=== PATIENT | male | born 1995 | race Two or more races ===

== ENCOUNTER 2024-10-02 11:33 | Emergency (ER) | payer MEDICAID, OTHER, SELFPAY ==
--- NOTE | ~2024-10-02 | CT_ITS ---
CLINICAL HISTORY: abdominal pain, RLQ CT abdomen and pelvis with contrast Comparison: None provided Findings: There is ill-defined somewhat linear pleural-based density within the left lower lobe on axial 4. The liver, gallbladder, spleen, adrenal glands and pancreas are unremarkable. Kidneys, ureters and bladder demonstrate no acute process. Normal appendix. No bowel obstruction, free air, free fluid, abscess or adenopathy. There is gas and fluid throughout nondistended small and large bowel. No acute osseous finding Impression: Normal appendix. Possible mild enteritis. This document has been electronically signed by: Bulmaro Siu MD on 10/02/2024 16:53:46
[2024-10-02 11:40] VITALS: BP 140/77; PULSE 75; RESP 18; TEMP 36.6; O2SAT 99; BMI 22.1
[2024-10-02 12:40] LABS: MANUAL DIFF FLAG NO
[2024-10-02 12:50] LABS: Hematocrit 41.6 % (42.0-52.0); Hemoglobin 14.7 g/dl (14.0-18.0); Imm Gran Abs Auto 0.04 X10*3/uL (0.00-0.03); Imm Gran Pct Auto 0.3 % (0.0-0.4); Lymphocytes Absolute Auto 1.5 X10*3/uL (1.2-4.9); Mean Corpuscular HGB Conc 35.3 g/dl (31.0-36.0); Mean Corpuscular Hemoglobin 29.8 pg (27.0-33.0); Mean Corpuscular Volume 84.2 fL (80.0-98.0); NRBC Abs Auto 0.000 X10*3/uL (0.0-0.012); NRBC Pct Auto 0.0 /100WBC (0.0-0.2); Platelet Count 214 X10*3/uL (160-400); Red Blood Count 4.94 X10*6/uL (4.60-5.80); White Blood Count 14.2 X10*3/uL (4.8-10.8)
[2024-10-02 12:51] LABS: IDNOW Serial# 58CA691E; Strep A Nucleic Acid Negative (Negative)
[2024-10-02 13:07] LABS: Alanine Aminotransferase 25 U/L (0-40); Albumin Level 5.0 g/dL (3.5-5.0); Alkaline Phosphatase 83 U/L (39-117); Anion Gap 13 (12-20); Aspartate Amino Transferase 25 U/L (5-37); Blood Urea Nitrogen 10 mg/dL (9-16); Calcium 9.4 mg/dL (8.4-10.2); Carbon Dioxide 26 mmol/L (22-29); Chloride 106 mmol/L (96-108); Creatinine Clr Calc Pharmacy 122.4; Estimated Glomerular Filt Rate > 60; Lipase 8 U/L (8-78); Potassium 3.9 mmol/L (3.3-5.1); Sodium 141 mmol/L (135-145); Total Protein 7.7 g/dL (6.5-8.0)
[2024-10-02 13:51] LABS: Resp Syncy Virus RNA Qual PCR NEGATIVE (Negative); SARS COV2 PCR INHOUSE NEGATIVE (Negative)
[2024-10-02 15:16] VITALS: BP 155/75; PULSE 70; RESP 18; TEMP 37.7; O2SAT 98
--- NOTE | 2024-10-02 15:16 | ED_ITS ---
HPI - General Adult General Chief complaint: General Medical Stated complaint: trouble breathing Time Seen by Provider: 10/02/24 15:16 Source: patient and inventory manager Mode of arrival: ambulatory Limitations: no limitations and language barrier History of Present Illness ED Provider: HPI narrative: 29-year-old male presenting with abdominal pain in the suprapubic area and right lower quadrant, unrelated of the he was also complaining of sore throat and pinching in his throat and concerned that his right side of the face and neck is swollen but that does not appear to be the case and mostly what he is here with his abdominal pain and he states that he did have some not show was yesterday he was fishing with friends drank a red bull, denies alcohol use, has had no hematuria or dysuria. Related Data Previous Rx's ?Medication ?Instructions ?Recorded dicyclomine 20 mg tablet 20 mg PO TID 3 days #9 tabs 10/02/24 ondansetron 4 mg disintegrating 4 mg PO Q8H PRN nausea and 10/02/24 tablet vomiting #4 tabs Allergies Allergy/AdvReac Type Severity Reaction Status Date / Time No Known Allergies Allergy Verified 10/02/24 11:47 Review of Systems 2 Constitutional: Constitutional: Reports as per [facility] Social History Social History Smoked in Last 30 Days: No Use of substances other than those prescribed or required for medical reasons: No Do you have a plan to hurt others: No Plan Physical Exam ED Vital Signs: Vital Signs - 24 hr 10/02/24 11:40 10/02/24 15:16 10/02/24 15:55 Temperature 97.9 F 100 F Pulse Rate 75 70 Respiratory Rate 18 18 15 Blood Pressure 140/77 H 155/75 H Pulse Oximetry 99 98 Oxygen Delivery Method Room Air Room Air 10/02/24 16:22 Temperature 99.3 F Pulse Rate 65 Respiratory Rate 18 Blood Pressure 114/56 L Pulse Oximetry 98 Oxygen Delivery Method Room Air BMI result Body Mass Index 22.1 Const Other: * Gen: ?Overall well-appearing patient * HEENT: PERRLA, EOMI, MMM, there is no facial swelling, good dentition * Neck: Supple, no LAD * CV: RRR, no obvious murmurs appreciated * Resp: ?No wheezing rales rhonchi no stridor moving air well * Abd: ?Bowel sounds present, tenderness right lower quadrant with voluntary guarding * MSK: FROM, strength 5/5 all extremities * Skin: Warm, dry, intact, * Neuro: ?Alert and oriented x3, moving upper and lower extremities symmetrically, no obvious facial asymmetry noted Medications Administered Generic Name Dose Route Start Last Admin Trade Name Guillermina PRN Reason Stop Dose Admin Ceftriaxone Sodium 1 gm 10/02/24 16:00 10/02/24 16:00 Ceftriaxone Sodium 1 Gm Vial IVPUSH 1 gm Q12H KASIA Administration Discontinued Medications Generic Name Dose Route Start Last Admin Trade Name Freq PRN Reason Stop Dose Admin Sodium Chloride 1,000 mls @ 999 mls/hr 10/02/24 15:45 10/02/24 16:00 Ns IV 10/02/24 16:45 999 mls/hr .Q1H1M KASIA Administration Iohexol 100 ml 10/02/24 16:00 10/02/24 16:03 Iohexol 350 Mg/Ml 100 Ml Infus..Btl IV 10/02/24 16:01 85 ml ONCE ONE Administration Ketorolac Tromethamine 15 mg 10/02/24 15:40 10/02/24 15:55 Ketorolac Tromethamine 15 Mg/Ml Vial IVPUSH 10/02/24 15:41 15 mg ONCE ONE Administration Morphine Sulfate 4 mg 10/02/24 15:40 10/02/24 15:55 Morphine Sulfate 4 Mg/Ml Cartridge IVPUSH 10/02/24 15:41 4 mg ONCE ONE Administration Protocol Ondansetron HCl 4 mg 10/02/24 15:40 10/02/24 15:55 Ondansetron Hcl 4 Mg/2 Ml Vial IVPUSH 10/02/24 15:41 4 mg ONCE ONE Administration Medical Decision Making Medical Decision Making [facility] Narrative: Physical examination is concerning for appendicitis, we will obtain CT, medicate, we will also administer a dose of antibiotics, I have considered whether he has biliary pathology did perform bedside ultrasound and there was no CBD dilation or pericholecystic fluid or edema of the gallbladder wall, blood work did reveal spiking believe that maybe reactive leukocytosis with a white shift, did not meet septic criteria, information was obtained with the help of a card runner 17:[address] findings with the patient and return precautions with the help of the card runner Differential Diagnosis Differential Diagnoses: The differential diagnosis associated with the presentation includes Cholecystitis, pancreatitis, hepatitis, gastritis, cholangitis, appendicitis, diverticulitis Admission/Observation Consideration of admission/observation: Escalation of care including admission/observation considered Lab Data MDM Lab Attestation statement: I reviewed the patient's lab results. 10/02/24 12:37 10/02/24 12:37 Labs: Lab Results 10/02/24 Range/Units 12:37 WBC 14.2 H (4.8-10.8) X10*3/uL RBC 4.94 (4.60-5.80) X10*6/uL Hgb 14.7 (14.0-18.0) g/dl Hct 41.6 L (42.0-52.0) % MCV 84.2 (80.0-98.0) fL MCH 29.8 (27.0-33.0) pg MCHC 35.3 (31.0-36.0) g/dl RDW 13.9 (11.0-16.0) % Plt Count 214 (160-400) X10*3/uL MPV 12.1 (9.4-12.4) fL Immature Gran % (Auto) 0.3 (0.0-0.4) % Neut % (Auto) 81.8 H (45-73) % Lymph % (Auto) 10.5 L (20-40) % [place] % (Auto) 6.9 (2-11) % Eos % (Auto) 0.3 (0-4) % Baso % (Auto) 0.2 (0-2) % Lymph # (Auto) 1.5 (1.2-4.9) X10*3/uL [place] # (Auto) 1.0 (0.1-1.2) X10*3/uL Eos # (Auto) 0.0 (0.0-0.4) X10*3/uL Baso # (Auto) 0.0 (0.0-0.2) X10*3/uL Abs Immat Gran (auto) 0.04 H (0.00-0.03) X10*3/uL Absolute Neuts (auto) 11.6 H (2.0-8.3) x10*3/uL Absolute Nucleated RBC 0.000 (0.0-0.012) X10*3/uL Nucleated RBC % (auto) 0.0 (0.0-0.2) /100WBC Sodium 141 (135-145) mmol/L Potassium 3.9 (3.3-5.1) mmol/L Chloride 106 (96-108) mmol/L Carbon Dioxide 26 (22-29) mmol/L Anion Gap 13 (12-20) BUN 10 (9-16) mg/dL Creatinine 0.82 (0.5-1.4) mg/dL Estim Creat Clear Calc 122.4 Estimated GFR > 60 Random Glucose 102 (60-115) mg/dL Calcium 9.4 (8.4-10.2) mg/dL Total Bilirubin 2.9 H (0.0-1.0) mg/dL Direct Bilirubin 0.7 H (0.0-0.5) mg/dL AST 25 (5-37) U/L ALT 25 (0-40) U/L Alkaline Phosphatase 83 (39-117) U/L Total Protein 7.7 (6.5-8.0) g/dL Albumin 5.0 (3.5-5.0) g/dL Lipase 8 (8-78) U/L Influenza Type A (PCR) NEGATIVE (Negative) Influenza Type B (PCR) NEGATIVE (Negative) RSV RNA Qual (PCR) NEGATIVE (Negative) SARS-CoV-2 RNA (RT-PCR) NEGATIVE (Negative) S. pyogenes GrpA PARISH Negative (Negative) Radiology Impression Radiologist Impression: Findings: There is ill-defined somewhat linear pleural-based density within the left lower lobe on axial 4. The liver, gallbladder, spleen, adrenal glands and pancreas are unremarkable. Kidneys, ureters and bladder demonstrate no acute process. Normal appendix. No bowel obstruction, free air, free fluid, abscess or adenopathy. There is gas and fluid throughout nondistended small and large bowel. No acute osseous finding Impression: Normal appendix. Possible mild enteritis. Discharge Plan Discharge Clinical Impression: Abdominal pain, acute, right lower quadrant, Enteritis Patient Disposition: Home, Self-Care Additional Instructions: Your CAT scan revealed evidence for enteritis which is essentially just inflammation of the gut and that is probably due to food-borne illness or viral illness most commonly, I am going to start you on medications for abdominal discomfort nausea or vomiting, stay well hydrated, avoid any heavy meals ,, however if your pain is getting worse and you spike fevers come back to emergency department for re-evaluation you may need a repeat CAT scan with oral contrast to make sure you do not have appendicitis, sometimes initial CAT scan is unremarkable and does not show early appendicitis Prescriptions: New dicyclomine 20 mg tablet 20 mg PO TID 3 Days Qty: 9 0RF ondansetron 4 mg tablet,disintegrating 4 mg PO Q8H PRN (Reason: nausea and vomiting) Qty: 4 0RF
[2024-10-02 15:55] VITALS: RESP 15
[2024-10-02] MEDS: iohexoL 350 MG/ML 100 ML INFUS..BTL IV (16:03)
[2024-10-02 16:22] VITALS: BP 114/56; PULSE 65; RESP 18; TEMP 37.4; O2SAT 98
[2024-10-02 17:15] VITALS: BP 114/56; PULSE 65; RESP 18; TEMP 37.4; O2SAT 98
== END 2024-10-02 17:22 | disposition home or self-care (01) ==
LOC: HO.ED 17:21
PROVIDERS: Emergency Provider Emergency Medicine
DX: K52.9 Noninfective gastroenteritis and colitis, unspecified (principal); R06.02 Shortness of breath; R10.31 Right lower quadrant pain; R11.2 Nausea with vomiting, unspecified; Z03.818 Encounter for observation for suspected exposure to other biological agents ruled out; Z79.899 Other long term (current) drug therapy
CPT/HCPCS: 74177; 80048; 80076; 83690; 85025; 87637; 87651; 96361; 96374; 96375; 99284; J0696; J1885; J2270; J2405; Q9967

== ENCOUNTER → 2024-10-02 15:40 | Outpatient (BNV) | payer SELFPAY | PROVIDERS: Emergency Provider Emergency Medicine; Visit Provider Radiology Vascular & Interventional Radiology | DX: R10.31 Right lower quadrant pain (principal) | CPT/HCPCS: 74177 ==